=== PATIENT | male | born 1990 | race Caucasian/White ===

== ENCOUNTER 2023-04-27 19:42 | Emergency (ER) | payer OTHER, MEDICARE, SELFPAY ==
[2023-04-27 20:19] VITALS: BP 137/93; PULSE 97; RESP 20; TEMP 37.1; O2SAT 98
--- NOTE | 2023-04-27 21:20 | ED_ITS ---
HPI - General Adult General Chief complaint: Laceration/Wound Stated complaint: Deep lac on left pointer finger Time Seen by Provider: 04/27/23 21:14 History of Present Illness HPI narrative: cutting [place], knife slipped and cut finger. Left hand, pointer finger. Pt works in a kitchen. Knife was dirty and sharp Event happened around 1945 33-year-old here with concern of a laceration to his finger. Managed to wrap up his finger with layers of paper towel with control of bleeding. Concerned about the depth of this injury. This occurred about half an hour ago. Is not feeling lightheaded particular. 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 Related Data Home Medications Medication Instructions Recorded Confirmed No Known Home Medications 04/27/23 05/08/23 Allergies Allergy/AdvReac Type Severity Reaction Status Date / Time No Known Drug Allergies Allergy Verified 05/08/23 17:16 Review of Systems Status of ROS: Reports: 6 or more systems reviewed and unremarkable except as noted in History and below PFSH PFS Social History Smoking Status: Never smoker Exam Narrative: Exam Narrative: Very pleasant. Of good energy. Skin is warm and dry. Exposing the index f abdi in question reveals a semi lunar laceration that bleeds easily with manipulation. Full dermal. Little over an inch in total length. Sensation appears to be intact. No weakness to flexion extension of the finger. Const: Vital Signs, click to edit/add: Vital Signs - 24 hr 04/27/23 20:19 Temperature 98.7 F Pulse Rate [Right Pulse Oximeter] 97 Respiratory Rate 20 Blood Pressure [Ri ght Upper Arm] 137/93 H Pulse Oximetry 98 Oxygen Delivery Me thod Room Air Documenting provider has reviewed patient's vital signs: yes Course Vital Signs Vital signs: Initial Vital Signs Temperature 98.7 F 04/27/23 20:19 Temperature Source Temporal Artery Scan 04/27/23 20:19 Pulse Rate 97 04/27/23 20:19 Pulse Rhythm Regular 04/27/23 20:19 Respiratory Rate 20 04/27/23 20:19 Blood Pressure 137/93 H 04/27/23 20:19 Blood Pressure Mean 107 H 04/27/23 20:19 Blood Pressure Position Sitting 04/27/23 20:19 Pulse Oximetry 98 07/15/23 20:19 Oxygen Delivery Method Room Air 04/27/23 20:19 Vital Signs Temperature 98.7 F 04/27/23 20:19 Pulse Rate 97 04/27/23 20:19 Respiratory Rate 20 04/27/23 20:19 Blood Pressure 137/93 H 04/27/23 20:19 Pulse Oximetry 98 04/27/23 20:19 Oxygen Delivery Method Room Air 04/27/23 20:19 Temperature 98.7 F 04/27/23 20:19 Pulse Rate 97 04/27/23 20:19 Respiratory Rate 20 04/27/23 20:19 Blood Pressure 137/93 H 04/27/23 20:19 Pulse Oximetry 98 04/27/23 20:19 Oxygen Delivery Method Room Air 04/27/23 20:19 Medical Decision Making MDM Narrative Medical decision making narrative: Will need suture repair. Placed a digital block with lidocaine. Very good wound anesthesia achieved. Further cleansed with Hibiclens and water solution. Sutured with interrupted Ethilon. Very good wound anesthesia achieved. Oozing slightly. Placed a light pressure dressing. Tolerated well. See patient discharge plan Discharge Plan Discharge Clinical Impression: Finger laceration Patient Disposition: Home, Self-Care Condition: Improved Additional Instructions: sutures out in 9-10 days. Change dressing daily with antibiotic ointment for 5 days and then to a dry dressing. ok to get wet but try not to soak while sutures are in. On the job I would protect with with finger condom until sutures are out. Watch for spreading redness after 2 days accompanied by heat, swelling, marked increase in pain, purulent drainage. Ibuprofen and elevation for comfort. Remove current dressing later in day tomorrow. If bleed through this dressing, replace and if bleed through that, return. Prescriptions: No Action No Known Home Medications Follow Up/Referrals: Provider,Not a Local [Primary Care Provider] - Stand Alone Forms: [employer] Info Instructions
== END 2023-04-27 23:02 | disposition home or self-care (01) ==
PROVIDERS: Emergency Provider Family Medicine
DX: S61.211A Laceration without foreign body of left index finger without damage to nail, initial encounter (principal); W26.0XXA Contact with knife, initial encounter
CPT/HCPCS: 12001; 99283; 99284